=== PATIENT | female | born 1975 | race Caucasian/White ===

== ENCOUNTER → 2016-07-29 | Outpatient (REF) | payer OTHER | LOC: M LAB REF 12:46 | PROVIDERS: ATTEND Nurse Practitioner Women's Health | DX: R39.89 Other symptoms and signs involving the genitourinary system (principal) ==

== ENCOUNTER → 2017-02-22 | Outpatient (CLI) | payer OTHER ==
[2017-02-22 09:48] LABS: BASO # 0.1 10^3/uL (0.0-0.2); BASO % 1.1 % (0.0-1.0); EOS # 0.2 10^3/uL (0.0-0.50); EOS % 1.8 % (0.0-3.0); IMMATURE GRANULOCYTE % 0.2 % (0-0); LYMPH % 31.7 % (24.0-44.0); MEAN CORPUSCULAR HEMOGLOBIN 27.8 pg (27.0-33.0); MEAN CORPUSCULAR HGB CONC 32.2 g/dl (32.0-36.5); MEAN CORPUSCULAR VOLUME 86.4 fl (80.0-96.0); MONO # 0.7 10^3/uL (0.0-0.8); MONO % 7.4 % (0.0-5.0); NEUTROPHILS # 5.4 10^3/uL (1.8-7.7); NEUTROPHILS % 57.8 % (36.0-66.0); PLATELET COUNT, AUTOMATED 285 10^3/uL (150-450); RED CELL DISTRIBUTION WIDTH 12.8 % (11.5-14.5); WHITE BLOOD COUNT 9.4 10^3/uL (4.0-10.0)
[2017-02-22 10:09] LABS: ALBUMIN 3.5 GM/DL (3.2-5.2); ALBUMIN/GLOBULIN RATIO 1.13 (1.00-1.93); ALKALINE PHOSPHATASE 68 U/L (45-117); ALT/SGPT 33 U/L (12-78); ANION GAP 8 MEQ/L (8-16); AST/SGOT 16 U/L (15-37); BILIRUBIN,TOTAL 0.6 MG/DL (0.2-1.0); BLOOD UREA NITROGEN 12 MG/DL (7-18); CALCIUM LEVEL 8.7 MG/DL (8.5-10.1); CARBON DIOXIDE LEVEL 29 MEQ/L (21-32); CHLORIDE LEVEL 105 MEQ/L (98-107); CHOLESTEROL LEVEL 181 MG/DL (<200); CREATININE FOR GFR 0.71 MG/DL (0.55-1.02); GLOMERULAR FILTRATION RATE > 60.0 (>58); GLUCOSE, FASTING 81 MG/DL (70-105); POTASSIUM SERUM 4.5 MEQ/L (3.5-5.1); SODIUM LEVEL 142 MEQ/L (136-145); TOTAL PROTEIN 6.6 GM/DL (6.4-8.2); TRIGLYCERIDES LEVEL 71 MG/DL (<150)
== END ==
LOC: M WUC 08:10
PROVIDERS: ATTEND Nurse Practitioner Family
DX: K21.9 Gastro-esophageal reflux disease without esophagitis (principal); Z13.828 Encounter for screening for other musculoskeletal disorder

== ENCOUNTER → 2018-12-20 | Outpatient (REF) | payer OTHER | LOC: M LAB REF 12:27 | PROVIDERS: ATTEND Physician Assistant | DX: N39.0 Urinary tract infection, site not specified (principal) ==

== ENCOUNTER → 2019-01-24 | Outpatient (REF) | payer OTHER ==
[2019-01-24 14:02] LABS: APPEARANCE, URINE CLEAR (CLEAR); BACTERIA, URINE AUTO NEGATIVE (NEGATIVE); BILIRUBIN, URINE AUTO NEGATIVE (NEGATIVE); BLOOD, URINE BLOOD 1+ (NEGATIVE); COLOR, URINE STRAW (YELLOW); GLUCOSE, URINE (UA) AUTO NEGATIVE (NEGATIVE); KETONE, URINE AUTO NEGATIVE (NEGATIVE); LEUKOCYTE ESTERASE, URINE AUTO NEGATIVE (NEGATIVE); NITRITE, URINE AUTO NEGATIVE (NEGATIVE); PROTEIN, URINE AUTO NEGATIVE (NEGATIVE); RBC, URINE AUTO 1 /HPF (0-3); SPECIFIC GRAVITY URINE AUTO 1.006 (1.002-1.035); SQUAMOUS EPITHELIAL CELL UR AU 1 /HPF (0-6); UROBILINOGEN, URINE AUTO 0.2 mg/dL (0.0-2.0); WBC, URINE AUTO 0 /HPF (0-3)
== END ==
LOC: M LAB REF 12:21
PROVIDERS: ATTEND Obstetrics & Gynecology
DX: R30.0 Dysuria (principal)

== ENCOUNTER → 2020-03-21 | Outpatient (REF) | payer OTHER ==
[2020-03-21 17:15] LABS: APPEARANCE, URINE HAZY (CLEAR); BACTERIA, URINE AUTO 1+ (NEGATIVE); BILIRUBIN, URINE AUTO NEGATIVE (NEGATIVE); BLOOD, URINE BLOOD 1+ (NEGATIVE); COLOR, URINE YELLOW (YELLOW); GLUCOSE, URINE (UA) AUTO NEGATIVE (NEGATIVE); KETONE, URINE AUTO NEGATIVE (NEGATIVE); LEUKOCYTE ESTERASE, URINE AUTO NEGATIVE (NEGATIVE); MUCUS, URINE SMALL (NEGATIVE); NITRITE, URINE AUTO NEGATIVE (NEGATIVE); PROTEIN, URINE AUTO NEGATIVE (NEGATIVE); RBC, URINE AUTO 1 /HPF (0-3); SPECIFIC GRAVITY URINE AUTO 1.012 (1.002-1.035); SQUAMOUS EPITHELIAL CELL UR AU 3 /HPF (0-6); UROBILINOGEN, URINE AUTO 0.2 mg/dL (0.0-2.0); WBC, URINE AUTO 1 /HPF (0-3)
== END ==
LOC: M LAB REF 16:32
PROVIDERS: ATTEND Obstetrics & Gynecology
DX: N32.81 Overactive bladder (principal); N39.41 Urge incontinence

== ENCOUNTER → 2020-08-16 | Outpatient (CLI) | payer OTHER ==
[~2020-08-16] MED LIST: CETI10TA4 PO; FAMO20TA PO; FLOM0.4C39 PO; acetylcysteine INH
== END ==
LOC: M LABSMTC 09:58
PROVIDERS: ATTEND Anesthesiology
DX: Z01.812 Encounter for preprocedural laboratory examination (principal); Z20.822 Contact with and (suspected) exposure to COVID-19

== ENCOUNTER 2020-08-21 06:08 | Day surgery (SDC) | payer OTHER ==
[~2020-08-21] VITALS: Ht 165.1 cm; Wt 123.9 kg
[2020-08-21] VITALS (7 sets, daily range): BP systolic 128–157; BP diastolic 77–88
[~2020-08-21 06:08] MED LIST changes: +LIDOCAINE 1% MDV 20ML VIAL SQ PRN; +PHENAZOPYRIDINE 100 MG TAB PO ONE
[2020-08-21] MEDS ORDERED: LIDOCAINE 1% SDV 30ML VIAL As Ordered ONE (06:52)
[2020-08-21] MEDS ORDERED: ceFAZolin SOD 2 GM in IV 1 EA IV ONE (07:00)
[2020-08-21] MEDS ORDERED: LR 1,000 ML IV ONE (07:00)
[2020-08-21 07:20] LABS: HEMATOCRIT 43.5 % (36.0-47.0); HEMOGLOBIN 14.1 g/dl (12.0-15.5); MEAN CORPUSCULAR HEMOGLOBIN 28.5 pg (27.0-33.0); MEAN CORPUSCULAR HGB CONC 32.4 g/dl (32.0-36.5); MEAN CORPUSCULAR VOLUME 87.9 fl (80.0-96.0); PLATELET COUNT, AUTOMATED 329 10^3/uL (150-450); RED BLOOD COUNT 4.95 10^6/uL (4.00-5.40); WHITE BLOOD COUNT 10.4 10^3/uL (4.0-10.0)
[2020-08-21] MEDS ORDERED: SCOPOLAMINE 1MG TRANSDERMAL PATCH TOP ONE (07:40)
[2020-08-21] MEDS ORDERED: propofoL 200 MG/20 ML VIAL As Ordered ONE (08:06)
[2020-08-21] MEDS ORDERED: MIDAZOLAM INJ 2MG/2ML VIAL (J2250 PER 1MG) As Ordered ONE (08:06)
[2020-08-21] MEDS ORDERED: HYDROmorphone HCL 2 MG/ML 1ML VIAL (J1170) As Ordered ONE (08:06)
[2020-08-21] MEDS ORDERED: ROCURONIUM BROMIDE 50 MG/5 ML VIAL As Ordered ONE ×2 (08:06→08:12)
[2020-08-21] MEDS ORDERED: ONDANSETRON 4MG/2ML VIAL As Ordered ONE (08:06)
[2020-08-21] MEDS ORDERED: LIDOCAINE 2% 100MG/5ML SDV (FOR ANES.) As Ordered ONE (08:06)
[2020-08-21] MEDS ORDERED: fentaNYL 100 MCG/2 ML INJECTION (J3010) As Ordered ONE (08:06)
[2020-08-21] MEDS ORDERED: dexameTHASONE 4 MG/ML 1ML VIAL (J1100 PER 1MG) As Ordered ONE (08:06)
[2020-08-21] MEDS ORDERED: ACETAMINOPHEN 1000MG 100ML IV BTL (OFIRMEV) (J0131 PER 10MG) As Ordered ONE (08:26)
[2020-08-21] MEDS ORDERED: SUGAMMADEX SODIUM 500 MG/5 ML VIAL (BRIDION) As Ordered ONE (09:04)
[2020-08-21] MEDS ORDERED: LABETALOL 100MG/20ML VIAL As Ordered ONE (09:10)
[2020-08-21] MEDS ORDERED: KETOROLAC 60MG 2ML VIAL As Ordered ONE (09:38)
[2020-08-21] MEDS ORDERED: ONDANSETRON 4MG/2ML VIAL IV PRN (11:20)
[2020-08-21] MEDS ORDERED: LR 1,000 ML IV SCH (11:20)
[2020-08-21] MEDS: oxyCODONE 5MG TAB PO PRN ×2 (11:26→11:56)
[2020-08-21] MEDS: fentaNYL 100 MCG/2 ML INJECTION (J3010) IV PRN ×4 (11:26→11:41)
[2020-08-21] MEDS: LR 1,000 ML IV SCH ×2 (11:30→19:30)
[2020-08-21] MEDS ORDERED: NS 1,000 ML IV SCH (11:30)
[2020-08-21] MEDS ORDERED: IBUPROFEN 600MG TAB PO PRN (11:30)
[2020-08-21] MEDS ORDERED: NALOXONE INJ 0.4MG/1ML VIAL (J2310 PER 1MG) IV PRN (11:30)
[2020-08-21] MEDS ORDERED: MORPHINE 1MG/ML IN 0.9% NACL 100ML IV BAG IV PRN (11:30)
[2020-08-21] MEDS ORDERED: EPIDURAL/PCA KEYS XX PRN (11:30)
[2020-08-21] MEDS ORDERED: diphenhydrAMINE 50MG/ML VIAL (J1200) IV PRN (11:30)
[2020-08-21] MEDS ORDERED: NALBUPHINE HCL 10 MG/ML AMP (J2300) IV PRN (11:30)
[2020-08-21] MEDS ORDERED: CETIRIZINE (ZyrTEC) 10 MG TAB PO PRN (11:40)
--- NOTE | 2020-08-21 17:37 | RO ---
OPERATIVE NOTE DATE OF OPERATION: 08/21/2020 PREOPERATIVE DIAGNOSES: Pain, bleeding; failed conservative therapy, as well as symptomatic vulvar sebaceous cyst, and undesired intrauterine device. POSTOPERATIVE DIAGNOSES: Pain, bleeding; failed conservative therapy, as well as symptomatic vulvar sebaceous cyst, and undesired intrauterine device. She has additional finding of a left hydroureter. She has a significant history of childhood reimplantation of the ureters and so, cystourethroscopy was done prior to initiating the hysterectomy and findings were as detailed in the operative report below. She had a preexisting left hydroureter, which was still existing after the case, but there was evidence of urine flow. PROCEDURE: Cystourethroscopy, which was done twice in this case, before and after, due to her abnormal medical history and surgical history. Then a robotic-assisted hysterectomy with bilateral salpingectomy, removal of intrauterine device (IUD), and removal of symptomatic sebaceous cyst of the labia. SURGEON: Tammy Lopez M.D. JOURNALIST: KYLE Olguin. ANESTHESIA: General endotracheal anesthesia. BRIEF DESCRIPTION OF PROCEDURE AND FINDINGS: Pearl was brought to the operating room where sufficient general endotracheal anesthesia was induced. She was prepped, draped, and positioned in the usual sterile fashion. Prior to initiating the hysterectomy, the subcutaneous cyst one on the right labia and about five on the left labia were removed. Each of these was about 5 mm or so in size, irregular shaped as they are, and painful for her as she sat or moved about, and certainly painful during intercourse. We made an incision over the roof of the cyst and did shell out the cyst morales. A 4-0 Vicryl was used to close the wounds, and we were able to incorporate three of the left side ones together for closure of that wound. She does have some smaller ones, but we discussed sort of the plan of this removal preoperatively and removed the most prominent and bothersome ones. We then proceeded to the Cystourethroscopy. As noted in the preop pictures with just her own distention, from not having gone to the bathroom without any fluid added, showed that both urethral orifices are on the patient's right side. There is considerable scarring and a very much cephalad placement of the left ureter, which crosses right over the top of the lower uterine segment actually much higher than typical and certainly above the region of the trigone as expected and there is an atypical shape to that. I actually thought it was scarred shut preoperatively because we did not see any evidence of egress of any fluid with a couple moments of peristalsis without any flash of that ureteral orifice before we even started, and the right ureter, which is in a much more typical location, also exiting on the right side; so exiting on its own side so to speak. This had a much more typical appearance and much more typical peristaltic activity and egress of fluid. So preoperatively, we were fairly suspicious that she did not have really any or any normal activity from that left side, but we could certainly see the ureter and the evident distention of it made us expect that we would be able to see it reasonably well operatively. We did remove the patient's Mirena IUD in the usual fashion. We sounded the uterus and placed the uterine manipulator, which was secured in place with 0-Vicryl suture in the cervix, and then proceeded to the abdominal work. We then proceeded to place all the manipulators after the uterus was sounded to 10 and we secured it with the sutures in the typical fashion for a robotic case and placed Cl[place] with the ability to backfill. We then turned out attention to the abdomen. A transverse semilunar incision was made below the umbilicus. We did need the U-needles because she is a little bit deeper at the umbilicus than some. We secured 0-Vicryl tension suture there and then placed the Nathan under direct open laparoscopic technique and CO2 insufflation was then begun. After adequate CO2 insufflation, the peritoneal cavity was visualized. There were some minor adhesions along the left side consistent with the previous surgery or with bowel inflammation, but overall a reassuring appearance in the pelvis with mildly enlarged uterus as expected and evidence of a couple of implants of endometriosis. These were close to that left hydroureter, so we did not manipulate them. At her request, we are leaving the ovaries. We started on the left side. The fimbria were attached to the blood supply to the ureter on the left, so there are a couple fimbria left behind; but we were able to get the majority of them, but those that were attached in the blood supply we left because we did not want to disrupt that ovary; as the patient had requested to keep her ovaries. I then carefully dissected the mesentery of the fallopian tube itself first on the left side, then the right, and then freed the utero ovarian suspensory ligament; again, first on the left side and then the right, and then the broad ligaments were bilaterally cauterized and transected as is usual. I then worked postoperatively to free the peritoneum to drop those ureters down. Again, the left hydronephrosis was readily visible and is pictured in the operative photos. I also noticed more than the average amount of oozing from the peritoneal dissection, which I usually do without cautery and tried to continue to do as much as possible in this case; but she was a little bit more oozy than average. I then worked across anteriorly and worked careful to work without cautery to dissect anteriorly because of the location of that ureter coming across higher than average. We also had some large varicosities on the right side and what we expected to be her most effective ureter, and so we were very careful in this dissection. We had to control that bleeding, but we also did not want to risk that ureter. Fortunately with support from below and upward pressure, we were able to isolate those vessels away from that ureter and cauterize them. So once we had the peritoneum dropped away anteriorly and posteriorly and having worked on the broad ligament to isolate the vessels, we cauterized the uterine vessels bilaterally; again, taking care to stay away from those ureters. We carefully transected these and continued the dissection up front using cold dissection as much as possible, but this was not entirely possible since the patient was a little bit oozier than typical. We then used monopolar to carefully make the colpotomy anteriorly and work this around circumferentially around the base of the cervix and the uterus was then delivered into the vagina. She did have a couple of pumping vessels from the angles, so 2-0 V-Loc was used two segments to close the cuff in a running lock stitch with the second layer imbricating the first in the midline with good hemostasis and approximation achieved with this. We then did put Surgicel down laying it flat and this was also photoed. Even though we had good hemostasis because the patient had been a little oozy, we definitely wanted to do our utmost to minimize that risk for her and this is photographed as well. We then turned our attention to the postop Cystourethroscopy. We were readily able to see a jet of Pyridium colored urine from the right ureter. There was no evidence of bladder injury and there was a weak jet from the left ureter, which had preoperatively looked inactive. So with the bladder a little more empty, we could see some weak jets of Pyridium colored urine. So this ureter is functional, but I think it is just a hydroureter all of the time and that may have been part of the indication for reimplanting it. The patient does not fully know that, but certainly both ureters had Pyridium colored urine coming from them after the hysterectomy was completed. So having confirmed this, we went ahead and removed the instruments and closed the abdominal wounds using the 0-Vicryl sutures to assure the fascia at the umbilical wound and then the smaller ports were closed at the skin using 3-0 Vicryl in a subcuticular stitch and this was also used at the skin at the umbilicus. We had good approximation and hemostasis at every layer. Dry sterile dressings were then applied. With the wounds closed and the dressings on, the procedures ended. There were no complications. ESTIMATED BLOOD LOSS: 100 mL. SPECIMENS TO PATHOLOGY: 1. Uterus with cervix and tubes attached. 2. Subcutaneous cyst. The IUD was removed, but not sent as is allowed by our policy. FLUID REPLACEMENT: Crystalloid. COMPLICATIONS: None. CONDITION AND DISPOSITION: Pearl tolerated the procedure well and is recovering in the recovery room in good condition.
[2020-08-21] MEDS: FAMOTIDINE 20 MG TAB PO SCH (21:00)
[2020-08-22 01:33] VITALS: BP 103/61
[2020-08-22 05:28] VITALS: BP 147/87
[2020-08-22] MEDS ORDERED: NORCO, ANEXSIA 5/325MG TABLET (HYDROcodone/ACETAMINOPHEN) PO PRN (06:00)
[2020-08-22] MEDS: LR 1,000 ML IV SCH (06:26)
[2020-08-22 07:39] LABS: HEMATOCRIT 39.5 % (36.0-47.0); HEMOGLOBIN 12.7 g/dl (12.0-15.5); MEAN CORPUSCULAR HEMOGLOBIN 28.7 pg (27.0-33.0); MEAN CORPUSCULAR HGB CONC 32.2 g/dl (32.0-36.5); MEAN CORPUSCULAR VOLUME 89.4 fl (80.0-96.0); PLATELET COUNT, AUTOMATED 340 10^3/uL (150-450); RED BLOOD COUNT 4.42 10^6/uL (4.00-5.40); WHITE BLOOD COUNT 19.5 10^3/uL (4.0-10.0)
[2020-08-22] MEDS: FAMOTIDINE 20 MG TAB PO SCH (09:34)
[2020-08-22 10:00] VITALS: BP 153/91
== END 2020-08-22 10:45 | disposition home or self-care (01) ==
LOC: M SDC 06:08 → M MS5PR 14:00 → M SDC 08-22 10:45
PROVIDERS: ATTEND Obstetrics & Gynecology
DX: D25.9 Leiomyoma of uterus, unspecified (principal); N80.0 Endometriosis of uterus; N88.8 Other specified noninflammatory disorders of cervix uteri; N90.7 Vulvar cyst; L72.0 Epidermal cyst; N13.4 Hydroureter; G43.909 Migraine, unspecified, not intractable, without status migrainosus; E66.9 Obesity, unspecified; K21.9 Gastro-esophageal reflux disease without esophagitis; M17.0 Bilateral primary osteoarthritis of knee; F32.9 Major depressive disorder, single episode, unspecified; R06.83 Snoring; Z88.0 Allergy status to penicillin; Z88.2 Allergy status to sulfonamides; Z79.899 Other long term (current) drug therapy
CPT/HCPCS: 11423; 36415; 58301; 58571; 81025; 85027; 86850; 86900; 86901; 88304; 88307; J0131; J0690; J1100; J1170; J1885; J2250; J2405; J3010

== ENCOUNTER → 2020-12-04 | Outpatient (CLI) | payer OTHER ==
[~2020-12-04] MED LIST changes: -LIDOCAINE 1% MDV 20ML VIAL SQ PRN; -PHENAZOPYRIDINE 100 MG TAB PO ONE
--- NOTE | 2020-12-04 09:52 | REP ---
INDICATION: PAIN. COMPARISON: None. FINDINGS: The joint spaces are symmetric and relatively well maintained. There is no evidence of acute fracture or destructive osseous lesion. Plantar and retrocalcaneal heel spurs are noted. Old calcifications are seen lateral to the cuboid. IMPRESSION: No acute abnormality <Electronically signed by Sean Swenson > 12/04/20 0922
== END ==
LOC: M WUC 08:15
PROVIDERS: ATTEND Physician Assistant
DX: M79.672 Pain in left foot (principal)

== ENCOUNTER → 2022-06-11 | Outpatient (REF) | payer OTHER | LOC: M LAB REF 13:03 | PROVIDERS: ATTEND Nurse Practitioner Family | DX: Z00.00 Encounter for general adult medical examination without abnormal findings (principal); N39.0 Urinary tract infection, site not specified ==